=== PATIENT | female | born 1970 | race Two or more races ===

== ENCOUNTER 2018-12-27 12:45 | Emergency (ER) | payer OTHER ==
[~2018-12-27] VITALS: Ht 157.5 cm; Wt 94.3 kg
== END 2018-12-27 18:58 | disposition home or self-care (01) ==
LOC: ER 12:45
DX: J06.9 Acute upper respiratory infection, unspecified (principal); E86.0 Dehydration; R50.9 Fever, unspecified

== ENCOUNTER 2024-03-29 12:44 | Emergency (ER) | payer OTHER ==
[~2024-03-29] VITALS: Ht 157.5 cm; Wt 89.4 kg
[2024-03-29] MEDS ORDERED: METHYLPREDNISOLONE SOD SUCC 125 MG VIAL IV STA (15:39)
[2024-03-29] MEDS ORDERED: LEVALBUTEROL HCL 1.25 MG/3 ML SOLUTION IH SCH (15:45)
[2024-03-29 18:26] LABS: HEMATOCRIT 41.1 % (36.0-45.00); HEMOGLOBIN 14.5 g/dL (12.0-15.00); MEAN CELL VOLUME 87.4 fL (80.00-100.00); MEAN CORPUSCULAR HEMOGLOBIN 30.7 pg (27.00-32.0); MEAN CORPUSCULAR HGB CONC 35.2 g/dl (32.0-36.0); PLATELET COUNT 260 K/uL (150-450); RED CELL DISTRIBUTION WIDTH 13.1 % (11.5-14.5)
== END 2024-03-29 21:26 | disposition home or self-care (01) ==
LOC: ER 12:46
PROVIDERS: General Practice
DX: J45.901 Unspecified asthma with (acute) exacerbation (principal); J06.9 Acute upper respiratory infection, unspecified; Z20.822 Contact with and (suspected) exposure to COVID-19
CPT/HCPCS: 36415; 71046; 94640; 99284; J3490